=== PATIENT | female | born 2005 | race Caucasian/White ===

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

== ENCOUNTER 2024-04-10 12:45 | Outpatient (CLI) | payer OTHER ==
[2024-04-11 05:13] LABS: CERULOPLASMIN 40.9 mg/dL (19.0-39.0)
[2024-04-12 14:08] LABS: A/G RATIO 1.2 (0.7-1.7); ALBUMIN 3.8 g/dL (2.9-4.4); ALPHA-1-GLOBULIN 0.3 g/dL (0.0-0.4); ALPHA-2-GLOBULIN 0.9 g/dL (0.4-1.0); BETA GLOBULIN 1.2 g/dL (0.7-1.3); GAMMA GLOBULIN 1.1 g/dL (0.4-1.8); GLOBULIN TOTAL 3.4 g/dL (2.2-3.9); IMMUNOGLOBULIN A (IGA) 85 mg/dL (87-352); IMMUNOGLOBULIN G (IGG) 1061 mg/dL (719-1475); IMMUNOGLOBULIN M (IGM) 63 mg/dL (58-230); M-SPIKE Not Observed g/dL (Not Observed); PROTEIN TOTAL 7.2 g/dL (6.0-8.5)
== END 2024-04-10 12:46 | disposition home or self-care (01) ==
LOC: LAB 12:45
DX: R76.8 Other specified abnormal immunological findings in serum (principal); R79.0 Abnormal level of blood mineral
CPT/HCPCS: 36415; 82390; 82525; 82784; 84155; 84165; 86334